=== PATIENT | female | born 1950 | race Caucasian/White ===

== ENCOUNTER 2025-02-03 08:51 | Emergency (ER) | payer BC ==
[~2025-02-03] VITALS: Ht 162.6 cm; Wt 66.2 kg
[2025-02-03 09:41] LABS: PLATELET COUNT (AUTO) 247 K/uL (150-450); RED BLOOD CELL COUNT(AUTO) 5.11 MIL/uL (4.0-5.2); RED CELL DISTRIBUTION WIDTH 16.3 % (11.5-15.0); WHITE BLOOD COUNT (AUTO) 10.6 K/uL (4.3-11.0)
[2025-02-03 09:47] LABS: CALCIUM, SERUM 8.9 mg/dL (8.5-10.1); CREATININE 1.0 mg/dL (0.6-1.3); SODIUM SERUM 146 mmol/L (136-145); UREA NITROGEN, BLOOD 17 mg/dL (7-18)
[2025-02-03 10:01] LABS: ASPARTATE AMINOTRANSFERASE 52 U/L (15-37); NT-PRO BNP 176 pg/mL (0-125); TOTAL PROTEIN, SERUM 7.6 g/dL (6.4-8.2)
[2025-02-03 10:08] LABS: APPEARANCE,URINE Turbid (CLEAR); BLOOD, URINE Moderate Ery/uL (NEGATIVE); LEUKOCYTE ESTERASE ,URINE Large (NEGATIVE); UGLUCOSE Negative (NEGATIVE)
[2025-02-03 10:12] LABS: NITRITE, URINE POSITIVE (NEGATIVE)
[2025-02-03] MEDS ORDERED: SULF1TAB48 PO (10:26)
[2025-02-03 10:27] LABS: ADD URINE CULTURE YES; SQUAMOUS EPITHELIAL CELL,UR Few /HPF (None Seen)
[2025-02-03] MEDS ORDERED: SULFAMETH/TRIMETH 800/160 MG 1 UDTAB TABLET ONE (10:34)
[2025-02-03] MEDS: SULFAMETH/TRIMETH 800/160 MG 1 UDTAB TABLET PO ONE (10:39)
[2025-02-03 12:26] VITALS: BP 125/70; TEMP 97.9; O2SAT 97
== END 2025-02-03 12:26 ==
LOC: ER 09:08
DX: N39.0 Urinary tract infection, site not specified (principal); I10 Essential (primary) hypertension; E11.9 Type 2 diabetes mellitus without complications; E78.00 Pure hypercholesterolemia, unspecified; R06.02 Shortness of breath; Z88.1 Allergy status to other antibiotic agents
CPT/HCPCS: 36415; 71045-TC; 80048-TC; 80076-TC; 81001; 82962-TC; 83690-TC; 83880; 84484-TC; 85025-TC; 87086-TC; 87186-TC